=== PATIENT | female | born 2000 | race Caucasian/White ===

== ENCOUNTER → 2021-03-15 09:43 | Outpatient (CLI) | payer OTHER, SELFPAY ==
--- NOTE | ~2021-03-15 | US_ITS ---
EXAMINATION: US abdomen complete DATE: 03/15/2021 10:18 INDICATION: Left upper quadrant pain, mononucleosis TECHNIQUE: Multiple grayscale and Doppler ultrasound images of the abdomen were obtained. COMPARISON: None available FINDINGS: The head, body, and tail of the pancreas are normal. The liver is normal with normal echoge nicity and echotexture. No surface nodularity. Normal hepatopetal flow in the main portal vein. The g allbladder is normal with no abnormal wall thickening, pericholecystic fluid or stones. The normal co mmon bile duct measures 3 mm. There was no sonographic De Oliveira sign. The visualized portions of the ao rta and inferior vena cava are normal. The right kidney measures 8.5 x 5.2 x 5.2 cm. The left kidney measures 9.6 x 6.5 x 5.7 cm. The kidney s demonstrate normal parenchymal echogenicity. There is no hydronephrosis. The spleen is normal in ap pearance and measures 11.2 cm. IMPRESSION: 1. No sonographic correlate for the patient's symptoms. No splenomegaly. Reviewed, dictated and finalized at location B.
== END ==
PROVIDERS: Visit Provider Emergency Medicine
DX: R10.31 Right lower quadrant pain (principal)
CPT/HCPCS: 76700